=== PATIENT | female | born 1980 | race Caucasian/White ===

== ENCOUNTER 2019-12-09 19:37 | Emergency (ER) | payer OTHER ==
[~2019-12-09] VITALS: Ht 175.3 cm; Wt 120.7 kg
[2019-12-09 19:50] VITALS: BP 121/71
--- NOTE | 2019-12-09 20:24 | ED EENT ---
History of Present Illness General Chief Complaint: Nasal Problems Stated Complaint: FEVER,SINUS PRESSURE IN EARS Nursing Triage Note: PT AMBULATE TO ROOM FT1 WITH C/O SINUS PRESSURE AND FEVER. PT REPORTS FEVER OF 99.1 AT HOME. Source: patient Exam Limitations: no limitations History of Present Illness Date Seen by Provider: December 09, 2019 Time Seen by Provider: 20:23 Initial Comments To ER with sinus pressure for about a week, temperature of 99, pain across her forehead and cheeks. No cough no shortness of breath. Timing/Duration: other (one week) Severity: moderate Location: facial Prearrival Treatment: no prearrival treatment Associated Symptoms: denies symptoms Allergies and Home Medications Allergies Coded Allergies: morphine (Unverified Allergy, Unknown, 12/09/19) ondansetron (Unverified Allergy, Unknown, SWELLING LIPS, 12/09/19) Patient Home Medication List Home Medication List Reviewed: Yes Review of Systems Review of Systems Constitutional: see HPI Eyes: No Symptoms Reported Ears: See HPI, Pain Nose: see HPI, congestion Mouth: no symptoms reported Throat: no symptoms reported Respiratory: no symptoms reported Cardiovascular: no symptoms reported Musculoskeletal: no symptoms reported Skin: no symptoms reported Neurological: No Symptoms Reported Hematologic/Lymphatic: No Symptoms Reported Immunological/Allergic: no symptoms reported Past Guxtxaw-Jrknod-Uijcaj Hx Patient Social History Alcohol Use: Occasionally Uses Recreational Drug Use: No Smoking Status: Current Everyday Smoker Type Used: Cigarettes 2nd Hand Smoke Exposure: Yes Recent Foreign Travel: No Contact w/Someone Who Travel: No Recent Infectious Disease Expo: No Recent Hopitalizations: No Physical Abuse: No Sexual Abuse: No Mistreated: No Fear: No Seasonal Allergies Seasonal Allergies: Yes Past Medical History Surgeries: No Respiratory: No Cardiac: No Neurological: No Genitourinary: No Gastrointestinal: No Musculoskeletal: No Endocrine: No HEENT: No Cancer: No Psychosocial: No Integumentary: No Physical Exam Vital Signs Vital Signs - First Documented 12/09/19 19:50 Temp 36.8 Pulse 81 Resp 18 B/P (MAP) 121/71 (88) O2 Delivery Room Air Height, Weight, BMI Height: '" Weight: lbs. oz. kg; 39.00 BMI Method: General Appearance: WD/WN, no apparent distress Eyes: bilateral eye normal inspection, bilateral eye PERRL, bilateral eye EOMI Ears: bilateral ear auricle normal, bilateral ear canal normal Neck: non-tender, full range of motion Respiratory: no respiratory distress, no accessory muscle use Gastrointestinal: normal bowel sounds, non tender Skin: normal color, warm/dry Progress/Results/Core Measures Results/Orders My Orders Orders - SHUN SNOW APRN Prednisone Tablet (Deltasone Tablet) (12/09/19 20:30) Amoxicillin/Clavulanate Tablet (Augmenti (12/09/19 20:30) Vital Signs/I&O 12/09/19 19:50 Temp 36.8 Pulse 81 Resp 18 B/P (MAP) 121/71 (88) O2 Delivery Room Air Blood Pressure Mean: 88 Departure Impression Primary Impression: Acute pansinusitis Qualified Codes: J01.40 - Acute pansinusitis, unspecified Disposition: HOME, SELF-CARE Condition: Stable Departure-Patient Inst. Decision time for Depature: 20:27 Referrals: NO,LOCAL PHYSICIAN (PCP/Family) Primary Care Physician Patient Instructions: Sinusitis, Adult (DC) Add. Discharge Instructions: 1. Medication as directed 2. Follow-up with her doctor next week 3. All discharge instructions reviewed with patient and/or family. Voiced understanding. Scripts Prednisone (Prednisone) 20 Mg Tab 40 MG PO DAILY, #6 TAB 0 Refills Prov: SHUN SNOW APRN 12/09/19 Amoxicillin/Potassium Clav (Augmentin 875-125 Tablet) 1 Each Tablet 1 EACH PO BID, #14 TAB 0 Refills Prov: SHUN SNOW APRN 12/09/19 Work/School Note: Work Release Form Date Seen in the Emergency Department: December 09, 2019 Return to Work: December 11, 2019 SHUN SNOW APRN December 09, 2019 20:24
[2019-12-09] MEDS ORDERED: PRD20T PO (20:28)
[2019-12-09] MEDS ORDERED: AMOX-358 PO (20:28)
[2019-12-09] MEDS ORDERED: AUGMENTIN 875 MG TAB (AMOXICILLIN/CLAVULANATE) PO SCH (20:30)
[2019-12-09] MEDS ORDERED: predniSONE 20 MG TAB PO ONE (20:30)
== END 2019-12-09 20:36 | disposition home or self-care (01) ==
LOC: ER 19:40
DX: J01.40 Acute pansinusitis, unspecified (principal); F17.210 Nicotine dependence, cigarettes, uncomplicated; Z88.5 Allergy status to narcotic agent; Z88.8 Allergy status to other drugs, medicaments and biological substances
CPT/HCPCS: 99283

== ENCOUNTER 2020-04-29 12:29 | Emergency (ER) | payer OTHER ==
[~2020-04-29] VITALS: Ht 177 cm; Wt 105.0 kg
[~2020-04-29 12:29] MED LIST: AMOX-358 PO; PRD20T PO
[2020-04-29] MEDS ORDERED: CYCLOBENZAPRINE 10 MG (FLEXERIL) TAB PO STA (13:00)
[2020-04-29] MEDS ORDERED: CYCL10TA9 PO (13:09)
--- NOTE | 2020-04-29 13:09 | ED General ---
General Chief Complaint: General Problems/Pain Stated Complaint: BODY SPASMS Nursing Triage Note: PT TO ED W/ C/O GENERALIZED, INTERMITTENT MUSCLE SPASMS ONSET YESTERDAY, WORSE TODAY. DENIES INJURY Nursing Sepsis Screen: No Definite Risk History of Present Illness Date Seen by Provider: Apr 29, 2020 Time Seen by Provider: 12:45 Initial Comments 39-year-old female presents for left trapezius pain. She has a history of fibromyalgia and his use CBD oil with THC. He has tried some Tylenol and ibuprofen with minimal improvement. She denies any chest pain, nausea or left arm radicular symptoms. She has been noticing over the last month decreased range of motion in her left shoulder. 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 Timing/Duration: 24 Hours Associated Systoms: No Chest Pain, No Cough, No Fever/Chills, No Headaches, No Malaise, No Nausea/Vomiting Allergies and Home Medications Allergies Coded Allergies: morphine (Unverified Allergy, Unknown, 12/09/19) ondansetron (Unverified Allergy, Unknown, SWELLING LIPS, 12/09/19) Home Medications Amoxicillin/Potassium Clav 1 Each Tablet, 1 EACH PO BID Prescribed by: SHUN SNOW on 12/09/192027 Cyclobenzaprine HCl 10 Mg Tablet, 10 MG PO Q8H PRN for SPASMS Prescribed by: MORELIA ALCANTARA on 04/29/20 1309 Prednisone 20 Mg Tab, 40 MG PO DAILY Prescribed by: SHUN SNOW on 12/09/192027 Patient Home Medication List Home Medication List Reviewed: Yes Review of Systems Review of Systems Constitutional: no symptoms reported, see HPI Musculoskeletal: see HPI, joint pain (left shoulder), muscle pain (left trapezius) All Other Systems Reviewed Negative Unless Noted: Yes Past Qyyphmp-Bzqcko-Rwujef Hx Past Med/Social Hx: Reviewed Nursing Past Med/Soc Hx Patient Social History Alcohol Use: Denies Use Recreational Drug Use: No Smoking Status: Current Everyday Smoker Type Used: Cigarettes 2nd Hand Smoke Exposure: Yes Recent Foreign Travel: No Contact w/Someone Who Travel: No Recent Infectious Disease Expo: No Recent Hopitalizations: No Physical Abuse: No Sexual Abuse: No Mistreated: No Fear: No Seasonal Allergies Seasonal Allergies: Yes Past Medical History Surgeries: No Respiratory: No Cardiac: No Neurological: No Genitourinary: No Gastrointestinal: No Musculoskeletal: No Endocrine: No HEENT: No Cancer: No Psychosocial: No Integumentary: No Physical Exam Vital Signs Vital Signs - First Documented 04/29/20 12:43 Temp 36.7 Pulse 107 Resp 20 B/P (MAP) 139/99 (112) O2 Delivery Room Air Capillary Refill : Less Than 3 Seconds Height, Weight, BMI Height: '" Weight: lbs. oz. kg; 33.00 BMI Method: General Appearance: No Apparent Distress, WD/WN HEENT: PERRL/EOMI, TMs Normal, Normal ENT Inspection Neck: Full Range of Motion, Normal Inspection; No Limited Range of Motion; Tender Lateral (and left, trapezius) Respiratory: Chest Non Tender, Lungs Clear, Normal Breath Sounds Cardiovascular: Regular Rate, Rhythm, No Edema, No Murmur, Normal Peripheral Pulses Extremity: Normal Capillary Refill, Normal Inspection, Normal Range of Motion, Other (full range of motion to left shoulder with some reproduced pain to the left trapezius. Power V/V external rotators, biceps and triceps. Neurovascular status intact left upper extremity.) Neurologic/Psychiatric: Alert, Oriented x3, No Motor/Sensory Deficits, Normal Mood/Affect Progress/Results/Core Measures Suspected Sepsis Recent Fever Within 48 Hours: No Infection Criteria Present: None New/Unexplained Altered Menta: No Sepsis Screen: No Definite Risk SIRS Temperature: Pulse: 107 Respiratory Rate: 20 Blood Pressure 139 /99 Mean: 112 Results/Orders My Orders Orders - MORELIA ALCANTARA Cyclobenzaprine Tablet (Flexeril Tablet) (04/29/20 13:00) Vital Signs/I&O 04/29/20 12:43 Temp 36.7 Pulse 107 Resp 20 B/P (MAP) 139/99 (112) O2 Delivery Room Air Capillary Refill : Less Than 3 Seconds Blood Pressure Mean: 112 Departure Impression Primary Impression: Strain of left trapezius muscle Qualified Codes: S46.812A - Strain of other muscles, fascia and tendons at shoulder and upper arm level, left arm, initial encounter Disposition: HOME, SELF-CARE Condition: Improved Departure-Patient Inst. Decision time for Depature: 13:05 Referrals: [facility] [place],LOCAL PHYSICIAN (PCP) Primary Care Physician Patient Instructions: Muscle Strain (DC), Cervical Muscle Strain (DC) Add. Discharge Instructions: Alternate heat and ice to your left trapezius. Alternate between Tylenol 650 Rachel grams and ibuprofen 600 mg every 4 hours for pain or discomfort. Use the Flexeril every 8 hours as needed for muscle spasms. Consider massage, Randy Leung [phone] or [facility] [phone] Return to the emergency department for new, urgent health care problems. All discharge instructions reviewed with patient and/or family. Voiced understanding. Scripts Cyclobenzaprine HCl (Cyclobenzaprine HCl) 10 Mg Tablet 10 MG PO Q8H PRN for SPASMS, #15 TAB 0 Refills Prov: MORELIA ALCANTARA 04/29/20 MORELIA ALCANTARA Apr 29, 2020 13:09
[2020-04-29 13:20] VITALS: BP 148/96
== END 2020-04-29 13:20 | disposition home or self-care (01) ==
LOC: EDUNIT# 12:29 → ER 12:30
DX: S46.812A Strain of other muscles, fascia and tendons at shoulder and upper arm level, left arm, initial encounter (principal); F17.210 Nicotine dependence, cigarettes, uncomplicated; Z79.52 Long term (current) use of systemic steroids; Z88.5 Allergy status to narcotic agent; Z88.8 Allergy status to other drugs, medicaments and biological substances; X58.XXXA Exposure to other specified factors, initial encounter
CPT/HCPCS: 99283

== ENCOUNTER 2021-04-18 18:56 | Emergency (ER) | payer SELFPAY ==
[~2021-04-18 18:56] MED LIST changes: +CYCL10TA25 PO
== END 2021-04-18 19:14 | disposition left against medical advice (07) ==
LOC: EDUNIT# 18:56 → ER 18:59
DX: R50.9 Fever, unspecified (principal); R05 Cough

== ENCOUNTER 2023-03-15 11:00 | Emergency (ER) | payer OTHER ==
[2023-03-15] MEDS ORDERED: HYDROcodone/ACETAMINOPHEN 7.5 MG/325 MG TABLET PO STA (11:17)
--- NOTE | 2023-03-15 11:21 | ED Back Pain ---
General Chief Complaint: Back Problems Stated Complaint: BACK PAIN Nursing Triage Note: PT AMB TO RM 6 WITH C/O BACK PAIN SINCE THURSDAY AFTER INJURING IT. PT DOES NOT KNOW HOW SHE INJURED IT BUT CANT SIT UP STRAIGHT NOW. PT GIVEN MUSCLE RELAXERS AND STEROIDS EARLIER LAST WEEK Source of Information: Patient Exam Limitations: No Limitations History of Present Illness Date Seen by Provider: Mar 15, 2023 Time Seen by Provider: 11:18 Initial Comments Patient is a 42-year-old female who presents to the ED for lower back pain. Back pain started Thursday. She states she was walking in [facility] around the frozen food section when she felt a pain in her lower back. She states she cannot recall any specific injury but may have turned awkwardly that resulted in the pain. This resulted in a sharp shooting pain down to her left little toe. Pain is described as sharp and constant. Worse when she stands or walks. She has not been able to get much relief with the pain. She denies of any bowel or urine incontinence or saddle paresthesia. History of previous lower back spine fracture that required surgery. She did go to [facility] on was given tramadol, steroids and muscle relaxer without much improvement. Patient states she cannot get comfortable. Nothing seems to improve her pain. She denies fever, chills, abdominal pain, dysuria, hematuria, chest pain, shortness of breath or cough. Allergies and Home Medications Allergies Coded Allergies: morphine (Unverified Allergy, Unknown, 12/09/19) ondansetron (Unverified Allergy, Unknown, SWELLING LIPS, 12/09/19) Patient Home Medication List Home Medication List Reviewed: Yes Amoxicillin/Potassium Clav (Augmentin 875-125 Tablet) 1 Each Tablet, 1 EACH PO BID Prescribed by: SHUN SNOW on 12/09/192027 Cyclobenzaprine HCl (Cyclobenzaprine HCl) 10 Mg Tablet, 10 MG PO Q8H PRN for SPASMS Prescribed by: MORELIA ALCANTARA on 04/29/20 1309 Hydrocodone/Acetaminophen (Hydrocodone-Acetamin 5-325 mg) 5 Mg-325 Mg Tablet, 1 TAB PO Q4H PRN for PAIN-MODERATE (5-7) Prescribed by: ALESSIO AMARO on 03/15/23 1210 Methocarbamol (Methocarbamol) 500 Mg Tablet, 500 MG PO Q6-8HR Prescribed by: ALESSIO AMARO on 03/15/23 1209 Prednisone (Prednisone) 20 Mg Tab, 40 MG PO DAILY Prescribed by: SHUN SNOW on 12/09/192027 Review of Systems Constitutional: No chills, No diaphoresis EENTM: No ear pain, No blurred vision, No double vision Respiratory: No cough, No dyspnea on exertion Cardiovascular: No chest pain, No edema Gastrointestinal: No abdominal pain, No diarrhea, No nausea, No vomiting Genitourinary: No decreased output, No discharge Musculoskeletal: back pain; No joint pain, No joint swelling, No muscle pain Skin: No change in color, No change in hair/nails All Other Systems Reviewed Negative Unless Noted: Yes Past Yiicrtx-Fpvoyo-Bydfgf Hx Patient Social History Tobacco Use?: Yes Tobacco type used: Cigarettes Substance use?: No Alcohol Use?: Yes Alcohol Frequency: Once in a while Pt feels they are or have been: No Seasonal Allergies Seasonal Allergies: Yes Past Medical History Surgery/Hospitalization HX: BACK SURGERY 2005, X2 Surgeries: No Respiratory: No Cardiac: No Neurological: No Last Menstrual Period: Mar 10, 2023 Genitourinary: No Gastrointestinal: No Musculoskeletal: No Endocrine: No HEENT: No Cancer: No Psychosocial: No Integumentary: No Physical Exam Vital Signs Vital Signs - First Documented 03/15/23 11:10 Temp 36.8 Pulse 106 B/P (MAP) 149/88 (108) Pulse Ox 99 O2 Delivery Room Air Capillary Refill : Height, Weight, BMI Height: '" Weight: lbs. oz. kg; 33.00 BMI Method: General Appearance: No Apparent Distress, WD/WN HEENT: PERRL/EOMI, TMs Normal, Normal ENT Inspection, Pharynx Normal Neck: Full Range of Motion, Normal Inspection, Non Tender, Supple Cardiovascular: Regular Rate, Rhythm, No Edema, No Gallop, No JVD, No Murmur Respiratory: Chest Non Tender, Lungs Clear, Normal Breath Sounds, No Accessory Muscle Use, No Respiratory Distress Gastrointestinal: Normal Bowel Sounds, No Organomegaly, No Pulsatile Mass, Non Tender Back: Vertebral Tenderness (Lumbar midline tenderness. Left lower lumbar paraspinal muscle tenderness.) Extremity: Normal Capillary Refill, Normal Inspection, Normal Range of Motion, Non Tender Neurologic/Psychiatric: Alert, Oriented x3, No Motor/Sensory Deficits, Normal Mood/Affect, foil wrapper II-XII Norm as Tested Skin: Normal Color, Warm/Dry Progress/Results/Core Measures Results/Orders My Orders Orders - MIRELLA ZHOU Ct Lumbar Spine Wo (03/15/23 11:17) Orphenadrine Inj (Ed Only) (Orphenadrine (03/15/23 11:30) Ketorolac Injection (Ketorolac Injection (03/15/23 11:30) Hydrocodone/Apap 7.5/325 Tab (Hydrocodon (03/15/23 11:17) Medications Given in ED Current Medications Medications Dose Ordered Sig/Chip Route Start Time Stop Time Status Last Admin Dose Admin Ketorolac Tromethamine 30 mg ONCE ONCE IM 03/15/23 11:30 03/15/23 11:31 DC 03/15/23 11:36 30 MG Orphenadrine Citrate 60 mg ONCE ONCE IM 03/15/23 11:30 03/15/23 11:31 DC 03/15/23 11:36 60 MG Vital Signs/I&O 03/15/23 03/15/23 11:10 12:23 Temp 36.8 36.8 Pulse 106 106 B/P (MAP) 149/88 (108) 149/88 Pulse Ox 99 99 O2 Delivery Room Air Room Air Blood Pressure Mean: 108 Departure Communication (PCP) Patient is a 42-year-old female who presents ED with low back pain. Injury this past Thursday. No specific falls. History of fracture in her back according to patient. Patient has a sharp shooting pain down to her left little toe. She has tenderness to her left lower lumbar spine. Pain with standing. Positive straight leg raise left leg. No neurological red flag findings such as bowel or urine incontinence or saddle paresthesia. She has no lower extremity weakness. Concerning for degenerative disc disease, bulging disks. Patient states this feels different than her normal back pain and is concerned. Discussed options at this time such as treatment and outpatient follow-up or proceed with imaging and treatment at this time. She request imaging. Discussed with patient CT scan is somewhat limiting but will we can proceed. She did receive something for treatment with Norflex, Toradol and a dose of hydrocodone with improvement of her pain. CT scan of the lumbar spine showed There is some generalized degenerative disc disease, greatest at L5-S1 with disc space narrowing and marginal spurring as well as vacuum disc phenomenon. Likely result of her pain. Somewhat limiting compared to a MRI. This was discussed with patient. At this time recommend conservative treatment. Avoid bending over, lifting greater than 10 pounds. Recommend stretching. She is requesting something different for pain. We will switch to Robaxin from cyclobenzaprine. Provided a few days worth of hydrocodone for breakthrough pain and to take only as needed. Suggest starting anti-inflammatory such as ibuprofen. Recommend eating with medication. Follow-up with your primary care physician this week for further evaluation. Would likely benefit with physical therapy discussed with patient potential length of symptoms. She is afebrile. No pain with urination or flank pain, abdominal pain or IV drug use. Unlikely other etiologies at this time such as epidural abscess versus kidney stone. If any worsening symptoms such as pain, bowel or urine incontinence or saddle paresthesia to return back to ED. Impression Primary Impression: Low back pain Disposition: HOME, SELF-CARE Condition: Stable Departure-Patient Inst. Decision time for Depature: 12:07 Referrals: [facility] [place] Primary Care Physician Patient Instructions: Low back pain in adults Add. Discharge Instructions: Recommend continue stretching. May consider a heat pad. Take Robaxin instead of the cyclobenzaprine. Hydrocodone as needed for breakthrough pain. May consider anti-inflammatories such as ibuprofen. Follow-up with your PCP for further evaluation. If any worsening pain to return back to ED for All discharge instructions reviewed with patient and/or family. Voiced understanding. Scripts Hydrocodone/Acetaminophen (Hydrocodone-Acetamin 5-325 mg) 5 Mg-325 Mg Tablet 1 TAB PO Q4H PRN for PAIN-MODERATE (5-7), #8 TAB Prov: MIRELLA ZHOU 03/15/23 Methocarbamol (Methocarbamol) 500 Mg Tablet 500 MG PO Q6-8HR for Back Pain, #20 TAB Prov: MIRELLA ZHOU 03/15/23 MIRELLA ZHOU Mar 15, 2023 11:21
[2023-03-15] MEDS ORDERED: ORPHENADRINE 60 MG/2 ML AMP (ED ONLY) IM ONE (11:30)
[2023-03-15] MEDS ORDERED: KETOROLAC INJ 30 MG/ML VIAL IM ONE (11:30)
--- NOTE | 2023-03-15 11:53 | Diagnostic Imaging Report ---
PROCEDURE: CT lumbar spine without contrast. TECHNIQUE: Multiple contiguous axial images were obtained through the lumbar spine without the use of intravenous contrast. Sagittal and coronal reformations were then performed. Auto Exposure Controls were utilized during the CT exam to meet ALARA standards for radiation dose reduction. INDICATION: Back pain and back injury with left hip and left leg radiculopathy. COMPARISON: No prior studies are available for comparison. FINDINGS: Curvature and alignment of the lumbar spine is normal. Vertebral body heights are well maintained. No acute compression fracture is seen. There is some generalized degenerative disc disease, greatest at L5-S1 with disc space narrowing and marginal spurring as well as vacuum disc phenomenon. IMPRESSION: Lumbar spondylosis. No acute bony abnormality is detected. Dictated by: Dictated on workstation # [id number]
[2023-03-15] MEDS ORDERED: METH-731 PO (12:09)
[2023-03-15] MEDS ORDERED: ACHD5005 PO (12:09)
[2023-03-15 12:23] VITALS: BP 149/88
== END 2023-03-15 12:25 | disposition home or self-care (01) ==
LOC: EDUNIT# 11:00 → ER 11:03
DX: M54.50 Low back pain, unspecified (principal); F17.210 Nicotine dependence, cigarettes, uncomplicated; Z88.5 Allergy status to narcotic agent
CPT/HCPCS: 72131; 99281

== ENCOUNTER 2023-03-31 08:40 | Emergency (ER) | payer OTHER ==
[~2023-03-31] VITALS: Ht 177 cm; Wt 104.0 kg
[~2023-03-31 08:40] MED LIST changes: +ACHD5005 PO; +METH-731 PO
[2023-03-31 08:45] VITALS: BP 132/83
[2023-03-31] MEDS ORDERED: DIAZ10TA PO (09:45)
[2023-03-31] MEDS ORDERED: HYDR-3817 PO (09:45)
--- NOTE | 2023-03-31 09:47 | ED Back Pain ---
General Chief Complaint: Back Problems Stated Complaint: LOWER BACK PAIN | HERNIATED DISK Nursing Triage Note: ARRIVED VIA AMB TO ROOM 07 WITH CONTINUED BACK PAIN FROM HERNIATED DISKS. STATES SHE INSURANCE WILL NOT ALLOW AN MRI UNTIL SEVERAL MONTHS OF PHYSICAL THERAPY HAS BEEN DONE AND IS NOT ABLE TO GET INTO HER DR. STATES NOW HER LEFT LOWER LEG IS HURTING WHICH HAS HER CONCERNED. Source of Information: Patient Exam Limitations: No Limitations History of Present Illness Date Seen by Provider: Mar 31, 2023 Time Seen by Provider: 09:41 Initial Comments Very pleasant 42-year-old female presents with severe sciatica down her left leg. However pain worsens with movement of her right leg. She has been seen by primary care she has had a CAT scan she is doing 6 weeks of physical therapy per recommendations by insurance will not approve an MRI until she completes this despite radicular pain. She is on Lyrica and Soma and has been for the past week. She is on a low-dose of Lyrica we will increase this and provide stronger pain medication and stronger muscle relaxer to help her sleep at night as she is unable to get any rest and this is affecting her overall health. Location: Lumbar Spine, Other (Left SI joint) Severity: Severe Pain/Injury Location: Lower Extremity Radiation: Buttocks, Upper Legs Associated Symptoms: muscle spasms Allergies and Home Medications Allergies Coded Allergies: morphine (Unverified Allergy, Unknown, 12/09/19) ondansetron (Unverified Allergy, Unknown, SWELLING LIPS, 12/09/19) Patient Home Medication List Home Medication List Reviewed: Yes Cyclobenzaprine HCl (Cyclobenzaprine HCl) 10 Mg Tablet, 10 MG PO Q8H PRN for SPASMS Prescribed by: MORELIA ALCANTARA on 04/29/20 1309 Diazepam (Valium) 10 Mg Tablet, 10 MG PO HS Prescribed by: Josselin Harris on 03/31/23945 Hydrocodone/Acetaminophen (Hydrocodone-Acetamin 7.5-325) 7.5 Mg-325 Mg Tablet, 1 EACH PO Q6H PRN for PAIN-MODERATE (5-7) Prescribed by: Josselin Harris on 03/31/23945 Discontinued Medications Amoxicillin/Potassium Clav (Augmentin 875-125 Tablet) 1 Each Tablet, 1 EACH PO BID Discontinued Reason: No Longer Taking Prescribed by: SHUN SNOW on 12/09/192027 Last Action: Discontinued Hydrocodone/Acetaminophen (Hydrocodone-Acetamin 5-325 mg) 5 Mg-325 Mg Tablet, 1 TAB PO Q4H PRN for PAIN-MODERATE (5-7) Discontinued Reason: No Longer Taking Prescribed by: ALESSIO AMARO on 03/15/23 1210 Last Action: Discontinued Methocarbamol (Methocarbamol) 500 Mg Tablet, 500 MG PO Q6-8HR Discontinued Reason: No Longer Taking Prescribed by: ALESSIO AMARO on 03/15/23 1209 Last Action: Discontinued Prednisone (Prednisone) 20 Mg Tab, 40 MG PO DAILY Discontinued Reason: No Longer Taking Prescribed by: SHUN SNOW on 12/09/192027 Last Action: Discontinued Review of Systems Constitutional: no symptoms reported EENTM: no symptoms reported Respiratory: no symptoms reported Cardiovascular: no symptoms reported Gastrointestinal: no symptoms reported Genitourinary: no symptoms reported : No Musculoskeletal: back pain Skin: no symptoms reported Psychiatric/Neurological: No Symptoms Reported All Other Systems Reviewed Negative Unless Noted: Yes Past Ymihush-Cgijgk-Cpzksr Hx Patient Social History Tobacco Use?: Yes Use of E-Cig and/or Vaping dev: Yes Substance use?: Yes Additional substance use comme: CBD Alcohol Use?: Yes Alcohol Frequency: Once in a while Seasonal Allergies Seasonal Allergies: Yes Past Medical History Surgery/Hospitalization HX: BACK SURGERY 2005, X2 Surgeries: No Respiratory: No Cardiac: No Neurological: No Last Menstrual Period: Mar 06, 2023 Genitourinary: No Gastrointestinal: No Musculoskeletal: No Endocrine: No HEENT: No Cancer: No Psychosocial: No Integumentary: No Physical Exam Vital Signs Vital Signs - First Documented 03/31/23 08:45 Temp 36.3 Pulse 87 Resp 16 B/P (MAP) 132/83 (99) Pulse Ox 96 O2 Delivery Room Air Capillary Refill : Less Than 3 Seconds Height, Weight, BMI Height: '" Weight: lbs. oz. 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 She is doing everything she is instructed to do. Her pain is keeping her awake at night. She does have significant pathology. Will place on pain medication and stronger muscle relaxer to help her sleep in order to maintain overall health and wellbeing. Advised patient that she will need to notify primary about prescriptions, she agrees and will only take them as needed. Understands this is a one-time prescription from the emergency department. Pharmacy called states they can only do 7 pills without prior authorization. Verbalized to go ahead and give her 7 pills but she will have to go through primary can hopefully help refill this otherwise she will have no choice but to report back to the emergency department Departure Impression Primary Impression: Lumbar radiculopathy Additional Impression: Sciatica Qualified Codes: M54.32 - Sciatica, left side Disposition: 01 HOME, SELF-CARE Condition: Stable Departure-Patient Inst. Referrals: SAUL MOCTEZUMA DO (PCP/Family) Primary Care Physician Patient Instructions: Sciatica (DC), Sciatica Exercises, Low Back Pain (DC), Back Muscle Strain (DC) Scripts Diazepam (Valium) 10 Mg Tablet 10 MG PO HS for 14 Days, #28 TAB Prov: JOSSELIN HARRIS DO 03/31/23 Hydrocodone/Acetaminophen (Hydrocodone-Acetamin 7.5-325) 7.5 Mg-325 Mg Tablet 1 EACH PO Q6H PRN for PAIN-MODERATE (5-7) for 14 Days, #56 TAB 0 Refills Prov: JOSSELIN HARRIS DO 03/31/23 JOSSELIN HARRIS DO Mar 31, 2023 09:47
== END 2023-03-31 10:04 | disposition home or self-care (01) ==
LOC: EDUNIT# 08:40 → ER 08:43
DX: M54.42 Lumbago with sciatica, left side (principal); F17.290 Nicotine dependence, other tobacco product, uncomplicated
CPT/HCPCS: 99281